=== PATIENT | female | born 1965 | race American Indian/Alaskan Native ===

== ENCOUNTER 2019-04-27 08:42 | Day surgery (SDC) | payer MEDICARE, MEDICAID ==
[2019-04-27] MEDS ORDERED: Dextrose 5%-Lactated Ringers 1,000 ML IV SCH (09:45)
[2019-04-27] MEDS ORDERED: Propofol 200 MG/20 ML SDV ONE ×2 (11:27→11:49)
[2019-04-27] MEDS ORDERED: Midazolam 1 MG/ML 2 ML SDV ONE (11:27)
[2019-04-27] MEDS ORDERED: fentaNYL 100 MCG/2 ML SDV ONE (11:27)
[2019-04-27] MEDS ORDERED: Sodium Chloride 0.9% 1,000 ML IV SCH (13:00)
--- NOTE | 2019-04-30 12:52 | OR ---
DATE OF PROCEDURE: 04/27/2019 SURGEON: Adiel Ray MD PREOPERATIVE DIAGNOSES: 1. Upper abdominal discomfort, status post Cade-en-Y gastric bypass. 2. Frequent loose bowel movements with intermittent episodes of fecal incontinence. POSTOPERATIVE DIAGNOSES: 1. Normal upper GI endoscopic examination. 2. Normal colonoscopy. OPERATIVE PROCEDURE: 1. Upper GI endoscopy (41420). 2. Flexible colonoscopy with: a. Collection of stool for microbiologic workup (91929). b. Random colorectal biopsies to rule out microscopic colitis (98146). ANESTHESIA: IV sedation. INDICATION FOR PROCEDURE: A 54-year-old status post previous Cade-en-Y gastric bypass, presenting with some chronic upper abdominal pain, along with history of frequent loose bowel movements and some episodes of fecal incontinence. Plan is to proceed with upper and lower endoscopy with biopsies as indicated. Potential risks including bleeding and perforation were discussed, and the patient wishes to proceed. DETAILS OF PROCEDURE: The patient was taken to the operating room and placed in a left lateral decubitus position. IV sedation was administered, after which the upper GI endoscope was passed orally through the length of the esophagus into the gastric pouch, from there through the gastrojejunostomy roughly 20 cm into the Cade limb. Overall, the upper GI endoscopic findings were entirely normal and no areas of significant inflammation or narrowing or stricturing along the course of that examination. The scope was then withdrawn, the above findings were reconfirmed. The attention was taken to the colonoscopy. Initial digital rectal exam was then performed, which was unremarkable. Colonoscope was passed into the rectum with retroflexion revealing uncomplicated hemorrhoidal columns. The scope was eventually passed to the level of the cecum. The prep was fair, and there was quite a bit of liquid stool present, but this was all liquid, and vast majority of the mucosal surfaces were well visualized. To that level, there were no evident areas of diverticular disease. No areas of colitis. No polyps or evidence of neoplasia, although the initial digital rectal exam did confirm an intact sphincter mechanism. During the course of the examination, stool was obtained and sent for a microbiologic workup. Following this, the scope was gradually withdrawn, and multiple biopsies were obtained randomly from the colon and rectum and sent for histologic evaluation to rule out microscopic colitis. Minimal bleeding from biopsy sites was seen and the procedure then concluded. The patient was taken to the recovery room in satisfactory condition. At this point, we will not change any medications. The patient was noted to have a ferritin of 5 with iron-deficiency pattern on her CBC recently. Given this, she was given 500 mg of Venofer post procedure, and her second dose will be scheduled in 5 to 10 days. Otherwise, she will be following up with Deirdre Bragg in roughly one month. At that time, it may be worthwhile to obtain a CBC and ferritin once again. Adiel Ray MD /[id number]
== END 2019-04-27 16:15 | disposition home or self-care (01) ==
LOC: JP.SDS 08:42
PROVIDERS: ATTEND Surgery
DX: R10.10 Upper abdominal pain, unspecified (principal); R19.5 Other fecal abnormalities; R15.9 Full incontinence of feces; K64.9 Unspecified hemorrhoids; Z98.84 Bariatric surgery status
CPT/HCPCS: 43235; 45380; 87046; 87177; 87209; 87493; 87899; 89055; J2250; J2704; J3010; J7030; J7042; Q0138